=== PATIENT | female | born 1990 | race Caucasian/White ===

== ENCOUNTER 2017-03-06 05:46 | Emergency (ER) | payer OTHER ==
[~2017-03-06] VITALS: Ht 172.7 cm; Wt 120.0 kg
[~2017-03-06 05:46] MED LIST: HYDROCODON-ACE1 EAC7 PO; IBUPROFEN800 MG PO; KEFLEX500 MG PO; NORCO 5/3251 TABLET PO; PERCOCET 5/31 TABLET PO
[2017-03-06] MEDS ORDERED: VIGAMOX 0.60 DROP/3 BOTH EYES (07:31)
[2017-03-06 07:40] VITALS: BP 128/78
== END 2017-03-06 07:42 | disposition home or self-care (01) ==
LOC: EME 05:46
DX: H10.9 Unspecified conjunctivitis (principal); F17.200 Nicotine dependence, unspecified, uncomplicated
CPT/HCPCS: 99281; 99284